=== PATIENT | female | born 1985 | race Caucasian/White ===

== ENCOUNTER 2018-11-26 17:16 | Emergency (ER) | payer BC, OTHER ==
[2018-11-26 17:36] VITALS: BP 146/92
--- NOTE | 2018-11-26 18:05 | EDM.PDOC ---
ED HPI GENERAL MEDICAL PROBLEM - General Chief Complaint: Cardiovascular Problem Stated Complaint: DIZZINESS/HEART PALPITATIONS Time Seen by Provider: 11/26/18 17:32 Source of Information: Reports: Patient History Limitations: Reports: No Limitations - History of Present Illness INITIAL COMMENTS - FREE TEXT/NARRATIVE: 33 yo F comes in for frequent episodes of heart palpitations that started about 4-5 months ago. She states they haven't gotten worse, but have continued for months and she has never had this before. She did not talk with her PCP regarding this issue- last saw Dr. Burgess "a couple weeks ago". She describes the episodes as lasting "a couple of seconds", happening every 30 minutes about 30-40 times per day, with random onset. Gets better with rest, worse with movement. She does not have associated chest pain. She does complain of some dizziness, SOB, nausea, "fluttering" in her chest, and feeling her "body goes limp". She denies PEDERSEN, visual changes, LOC, seizure history, vomiting, diarrhea or other symptoms. She has no cardiac history, thyroid history, but does have history of asthma- uses inhaler as needed. No no stress/anxiety in her life. PCP is Dr. Burgess. - Related Data Allergies Allergy/AdvReac Type Severity Reaction Status Date / Time hydroxychloroquine Allergy Hives Verified 11/26/18 17:25 Sulfa (Sulfonamide Allergy Hives Verified 11/26/18 17:25 Antibiotics) Home Meds: Home Meds Adalimumab [Humira] 20 mg SQ ASDIRECTED 11/26/18 [History] DULoxetine [Cymbalta] 30 mg PO BID 11/26/18 [History] Gabapentin [Neurontin] 300 mg PO DAILY 11/26/18 [History] Gabapentin [Neurontin] 900 mg PO BEDTIME 11/26/18 [History] Montelukast [Singulair] 10 mg PO DAILY 11/26/18 [History] Propranolol [Inderal] 10 mg PO DAILY 11/26/18 [History] Past Medical History HEENT History: Reports: Impaired Vision Other HEENT History: wears contacts. Respiratory History: Reports: Asthma Gastrointestinal History: Reports: Hiatal Hernia Genitourinary History: Reports: UTI, Recurrent FISHING HAND History: Reports: Musculoskeletal History: Reports: RA, Other (See Below) Other Musculoskeletal History: ??psoriatic arthritis. Neurological History: Reports: Migraines Psychiatric History: Reports: Anxiety, Depression Hematologic History: Reports: Anemia Dermatologic History: Reports: Psoriasis - Infectious Disease History Infectious Disease History: Reports: Chicken Pox - Past Surgical History HEENT Surgical History: Reports: Adenoidectomy, Tonsillectomy Respiratory Surgical History: Reports: None GI Surgical History: Reports: EGD, Hernia Repair/Other Female Surgical History: Reports: Dilitation & Evacuation Neurological Surgical History: Reports: None Musculoskeletal Surgical History: Reports: Carpal Tunnel Dermatological Surgical History: Reports: None Social & Family History - Family History Cardiac: Reports: Hypertension - Tobacco Use Smoking Status *Q: Never Smoker Second Hand Smoke Exposure: No - Caffeine Use Caffeine Use: Reports: Coffee - Recreational Drug Use Recreational Drug Use: No - Living Situation & Occupation Living situation: Reports: Occupation: Employed ED ROS GENERAL - Review of Systems Review Of Systems: ROS reveals no pertinent complaints other than HPI. ED EXAM, GENERAL - Physical Exam Exam: See Below Exam Limited By: No Limitations General Appearance: Alert, WD/WN, No Apparent Distress Eye Exam: Bilateral Eye: EOMI, Normal Inspection, PERRL Ears: Normal External Exam, Hearing Grossly Normal Throat/Mouth: Normal Inspection, Normal Lips, Normal Teeth, Normal Gums, Normal Oropharynx, Normal Voice, No Airway Compromise Head: Atraumatic, Normocephalic Neck: Normal Inspection, Supple, Non-Tender, Full Range of Motion Respiratory/Chest: No Respiratory Distress, Lungs Clear, Normal Breath Sounds, No Accessory Muscle Use, Chest Non-Tender Cardiovascular: Normal Peripheral Pulses, No Edema, No Gallop, No JVD, No Murmur , No Rub, Tachycardia GI/Abdominal: Normal Bowel Sounds, Soft, Non-Tender, No Organomegaly, No Distention, No Abnormal Bruit, No Mass Back Exam: Normal Inspection, Full Range of Motion, NT Neurological: Alert, Oriented, CN II-XII Intact, Normal Cognition, Normal Gait, Normal Reflexes, No Motor/Sensory Deficits Psychiatric: Normal Affect, Normal Mood Skin Exam: Warm, Dry, Intact, Normal Color, No Rash Course - Vital Signs Last Recorded V/S: Last Vital Signs Temp 98.5 F 11/26/18 17:20 Pulse 96 11/26/18 17:20 Resp 16 11/26/18 17:20 BP 146/92 H 11/26/18 17:20 Pulse Ox 99 11/26/18 17:20 - Orders/Labs/Meds Orders: Active Orders 24 hr Category Date Time Status EKG 12 Lead [EKG Documentation Completion] [RC] STAT Care 11/26/18 17:27 Active CXR [Chest 2V] [CR] Stat Exams 11/26/18 18:53 Taken Labs: Laboratory Tests 11/26/18 11/26/18 11/26/18 Range/Units 19:22 19:22 19:22 WBC 11.85 H (3.98-10.04) K/mm3 RBC 4.92 (3.98-5.22) M/mm3 Hgb 13.5 (11.2-15.7) gm/L Hct 41.7 (34.1-44.9) % MCV 84.8 (79.4-94.8) fl MCH 27.4 (25.6-32.2) pg MCHC 32.4 (32.2-35.5) g/dl RDW Std Deviation 43.8 (36.4-46.3) fL Plt Count 375 H (182-369) K/mm3 MPV 9.9 (9.4-12.3) fl Neut % (Auto) 40.6 (34.0-71.1) % Lymph % (Auto) 50.8 (19.3-51.7) % [place] % (Auto) 6.2 (4.7-12.5) % Eos % (Auto) 1.6 (0.7-5.8) Baso % (Auto) 0.6 (0.1-1.2) % Neut # (Auto) 4.82 (1.56-6.13) K/mm3 Lymph # (Auto) 6.02 H (1.18-3.74) K/mm3 [place] # (Auto) 0.73 H (0.24-0.36) K/mm3 Eos # (Auto) 0.19 (0.04-0.36) K/mm3 Baso # (Auto) 0.07 (0.01-0.08) K/mm3 Manual Slide Review Abnormal smear Sodium 140 (136-145) mEq/L Potassium 3.9 (3.5-5.1) mEq/L Chloride 103 (98-107) mEq/L Carbon Dioxide 27 (21-32) mEq/L Anion Gap 13.9 (5-15) BUN 15 (7-18) mg/dL Creatinine 0.9 (0.55-1.02) mg/dL Est Cr Clr Drug Dosing 72.17 mL/min Estimated GFR (MDRD) > 60 (>60) mL/min BUN/Creatinine Ratio 16.7 (14-18) Glucose 103 (74-106) mg/dL Calcium 10.0 (8.5-10.1) mg/dL Total Bilirubin 0.2 (0.2-1.0) mg/dL AST 18 (15-37) U/L ALT 33 (14-59) U/L Alkaline Phosphatase 86 (46-116) U/L Troponin I < 0.017 (0.00-0.056) ng/mL Total Protein 8.1 (6.4-8.2) g/dl Albumin 4.1 (3.4-5.0) g/dl Globulin 4.0 gm/dL Albumin/Globulin Ratio 1.0 (1-2) TSH 3rd Generation 1.931 (0.358-3.74) uIU/mL - Re-Assessments/Exams Free Text/Narrative Re-Assessment/Exam: 11/26/18 17:54 EKG shows 11/26/18 19:22 I have ordered CBC, CMP, Troponin, CXR 11/26/18 20:05 CBC shows WBC 11.8- this is likely d/t stress response and not illness as the patient has no sick symptoms CMP WNL Troponin <0.017 CXR reviewed by myself and Dr. Farris- nothing acute seen. TSH pending 11/26/18 21:05 TSH WNL at 1.931 At this time, she is stable enough to go home. She can follow up with her PCP for possible Holter Monitor if symptoms continue. Departure - Departure Time of Disposition: 21:06 Disposition: Home, Self-Care 01 Condition: Good Clinical Impression: Palpitations Instructions: Palpitations, [id number] Referrals: Rebecca Hubbard MD [Primary Care Provider] - Forms: ED Department Discharge Additional Instructions: You were seen in the ED today for heart palpitations that have been happening the past 4-5 months. At this time, your cardiac workup here was negative. Your labs showed no electrolyte abnormalities or thyroid issues that may cause palpitations. Chest Xray was normal. It is recommended you follow up with your primary care provider as you may need a Holter Monitor, which can track your heart for abnormalities for 1-2 days. Please return to ED if new or worsening symptoms. - My Orders Last 24 Hours: My Active Orders 11/26/18 17:27 EKG 12 Lead [EKG Documentation Completion] [RC] STAT 11/26/18 18:53 CXR [Chest 2V] [CR] Stat - Assessment/Plan Last 24 Hours: My Active Orders 11/26/18 17:27 EKG 12 Lead [EKG Documentation Completion] [RC] STAT 11/26/18 18:53 CXR [Chest 2V] [CR] Stat
--- NOTE | 2018-11-28 10:55 | CR ---
Chest: Two views of the chest were obtained. Comparison: No prior chest imaging. Heart size and mediastinum are normal. Lungs are clear. Bony structures show slight scoliosis within the spine. Impression: 1. Nothing acute is seen on two-view chest x-ray. Diagnostic code #2
== END 2018-11-26 21:26 | disposition home or self-care (01) ==
LOC: JD.ED 17:16
DX: R00.2 Palpitations (principal); J45.909 Unspecified asthma, uncomplicated; F41.9 Anxiety disorder, unspecified; F32.9 Major depressive disorder, single episode, unspecified; Z79.899 Other long term (current) drug therapy; Z88.2 Allergy status to sulfonamides; Z88.8 Allergy status to other drugs, medicaments and biological substances
CPT/HCPCS: 36415; 71046; 71046-26; 80053; 84443; 84484; 85025; 93005; 93010; 99284; 99285-25

== ENCOUNTER 2019-07-25 09:32 | Emergency (ER) | payer OTHER ==
[2019-07-25 09:47] VITALS: PULSE 67
--- NOTE | 2019-07-25 09:48 | EDM.PDOC ---
ED HPI GENERAL MEDICAL PROBLEM - General Chief Complaint: Lower Extremity Injury/Pain Stated Complaint: [facility] Time Seen by Provider: 07/25/19 09:42 Source of Information: Reports: Patient History Limitations: Reports: No Limitations - History of Present Illness INITIAL COMMENTS - FREE TEXT/NARRATIVE: Patient is a 34-year-old female who presents with complaints of left ankle pain and swelling after falling down "1-2 stairs". She is unsure of the mechanism of the fall. States that she just felt a pop in shooting pain. She verbalized the majority of her pain is to the medial aspect of her ankle. EMS reports that there was deformity to the joint upon arrival and they did straighten it and apply a splint. Patient initially has significant numbness to the extremity , however after the splint was applied she did regain feeling back in the foot. She does state that it still feels a little numb but she can feel touch. Patient received 50 mcg of intranasal fentanyl enroute and states that her pain is well managed at this time. Left Ankle Pain Score (Numeric/FACES): 6 - Related Data Allergies Allergy/AdvReac Type Severity Reaction Status Date / Time hydroxychloroquine Allergy Hives Verified 07/25/19 09:47 Sulfa (Sulfonamide Allergy Hives Verified 07/25/19 09:47 Antibiotics) Home Meds: Home Meds Adalimumab [Humira] 20 mg SQ ASDIRECTED 11/26/18 [History] DULoxetine [Cymbalta] 30 mg PO BID 11/26/18 [History] Gabapentin [Neurontin] 300 mg PO QAM 11/26/18 [History] Gabapentin [Neurontin] 600 mg PO BEDTIME 11/26/18 [History] Montelukast [Singulair] 10 mg PO DAILY 11/26/18 [History] Propranolol [Inderal] 10 mg PO DAILY 11/26/18 [History] oxyCODONE HCl/Acetaminophen [Percocet 5-325 mg Tablet] 1 - 2 each PO Q4H PRN # 30 tablet 07/25/19 [Rx] Past Medical History HEENT History: Reports: Impaired Vision Other HEENT History: wears contacts. 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 Neurological History: Reports: Migraines Psychiatric History: Reports: Anxiety, Depression Hematologic History: Reports: Anemia Dermatologic History: Reports: Psoriasis - Infectious Disease History Infectious Disease History: Reports: Chicken Pox - Past Surgical History HEENT Surgical History: Reports: Adenoidectomy, Tonsillectomy Respiratory Surgical History: Reports: None GI Surgical History: Reports: EGD, Hernia Repair/Other Female Surgical History: Reports: Dilitation & Evacuation Neurological Surgical History: Reports: None Musculoskeletal Surgical History: Reports: Carpal Tunnel Dermatological Surgical History: Reports: None Social & Family History - Family History Cardiac: Reports: Hypertension - Caffeine Use Caffeine Use: Reports: Coffee - Living Situation & Occupation Living situation: Reports: Occupation: Employed Review of Systems - Review of Systems Review Of Systems: See Below Constitutional: Reports: No Symptoms Eyes: Reports: No Symptoms Ears: Reports: No Symptoms Nose: Reports: No Symptoms Mouth/Throat: Reports: No Symptoms Respiratory: Reports: No Symptoms Cardiovascular: Reports: No Symptoms GI/Abdominal: Reports: No Symptoms Genitourinary: Reports: No Symptoms Musculoskeletal: Reports: Joint Pain (left ankle) Skin: Reports: No Symptoms Neurological: Reports: No Symptoms Psychiatric: Reports: No Symptoms ED EXAM, GENERAL - Physical Exam Exam: See Below Exam Limited By: No Limitations General Appearance: Alert, WD/WN, No Apparent Distress Respiratory/Chest: No Respiratory Distress, Lungs Clear, Normal Breath Sounds, No Accessory Muscle Use, Chest Non-Tender Cardiovascular: Normal Peripheral Pulses, Regular Rate, Rhythm, No Murmur Extremities: Other (left ankle swelling. Medial aspect greater than lateral. Slight medial deformity noted. pt verbalizes some numbness to the extremity but is able to move her toes and feel touch. Toes are pink and warm. ) Neurological: Alert, Oriented, Normal Cognition Psychiatric: Normal Affect, Normal Mood Skin Exam: Warm, Dry, Intact, Normal Color, No Rash Course - Vital Signs Last Recorded V/S: Last Vital Signs Temp 98.1 F 07/25/19 09:41 Pulse 67 07/25/19 09:41 Resp 14 07/25/19 09:41 BP 125/84 07/25/19 09:41 Pulse Ox 100 07/25/19 09:41 - Orders/Labs/Meds Orders: Active Orders 24 hr Category Date Time Status Peripheral IV Care [RC] . DIRECTED Care 07/25/19 09:55 Active Ankle Min 3V Lt [CR] Stat Exams 07/25/19 09:42 Taken Foot Comp Min 3V Lt [CR] Stat Exams 07/25/19 09:42 Taken Sodium Chloride 0.9% [Saline Flush] Med 07/25/19 09:55 Active 10 ml FLUSH ASDIRECTED PRN DME for Discharge [COMM] Routine Oth 07/25/19 10:19 Ordered DME for Discharge [COMM] Stat Oth 07/25/19 10:28 Ordered Peripheral IV Insertion Adult [OM.PC] Stat Oth 07/25/19 09:55 Ordered Medication Orders Sodium Chloride (Saline Flush) 10 ml FLUSH ASDIRECTED PRN PRN Reason: Keep Vein Open Last Admin: 07/25/19 10:25 Dose: 10 ml Meds: Medications Generic Name Dose Route Start Last Admin Trade Name Freq PRN Reason Stop Dose Admin Sodium Chloride 10 ml 07/25/19 09:55 07/25/19 10:25 Saline Flush FLUSH 10 ml ASDIRECTED PRN Administration Keep Vein Open Discontinued Medications Generic Name Dose Route Start Last Admin Trade Name Freq PRN Reason Stop Dose Admin Hydromorphone HCl 0.5 mg 07/25/19 10:19 07/25/19 10:25 Dilaudid IVPUSH 07/25/19 10:20 0.5 mg ONETIME ONE Administration Hydromorphone HCl Confirm 07/25/19 10:20 07/25/19 10:26 Dilaudid Administered 07/25/19 10:21 Not Given Dose 0.5 mg .ROUTE .STK-MED ONE Oxycodone/Acetaminophen 1 tab 07/25/19 10:54 07/25/19 11:01 Percocet 325-5 Mg PO 07/25/19 10:55 1 tab ONETIME ONE Administration - Re-Assessments/Exams Free Text/Narrative Re-Assessment/Exam: Patient is a 34-year-old female who presents with complaints of left ankle pain and swelling after falling down one to 2 steps. She is unsure if she fell on the extremity or if it twisted. She states that she felt a pop and then in extreme pain. She has no previous injury to that extremity, however she does have RA and she states that that ankle has been bothering her recently. She did receive 50 mics of intranasal fentanyl and round and states that her pain is well managed this time. I will have the nurses establish IV access in case additional pain meds are needed. I have ordered x-rays of the ankle and foot. 07/25/19 10:22 X-ray shows a spiral fracture of the lateral malleolus with a slight lateral shift of the ankle joint itself. Consulted with ER physician Dr. Farris. We will administer Dilaudid 0.[address] then [address] the ankle in a walking boot. This will likely require surgical repair, so the pt will be referred to orthopedic surgery. Patient will be discharged with crutches and orders for nonweightbearing and to follow up with Dr. Mejia next week. I will prescribe her Percocets for pain. Discharge instructions as noted. Departure - Departure Time of Disposition: 10:56 Disposition: Home, Self-Care 01 Condition: Fair Clinical Impression: Fractured lateral malleolus Qualifiers: Encounter type: initial encounter Fracture type: closed Fracture alignment: displaced Laterality: left Qualified Code(s): S82.62XA - Displaced fracture of lateral malleolus of left fibula, initial encounter for closed fracture - Discharge Information *PRESCRIPTION DRUG MONITORING PROGRAM REVIEWED*: No *COPY OF PRESCRIPTION DRUG MONITORING REPORT IN PATIENT MOHIT: No Prescriptions: oxyCODONE HCl/Acetaminophen [Percocet 5-325 mg Tablet] 1 - 2 each PO Q4H PRN # 30 tablet PRN Reason: Pain Instructions: Ankle Fracture Referrals: Edwar Mejia MD [Physician] - Forms: ED Department Discharge, ED Return to Work/School Form Additional Instructions: You were seen in the emergency Department today after falling and injuring her left ankle. You do have a fracture of the left lateral malleolus. You have been placed in a walking boot. You should be nonweightbearing and use crutches for mobility. You may open boot to apply ice to the area; however, reapply the boot prior to being mobile. We recommend that you ice for 20 minutes at a time every couple hours. Be sure not to apply ice directly to the skin. We also recommend that you elevate the extremity as much as possible. You have been prescribed Percocet for pain. You may take 1-2 tabs every 4 hours as needed. You may also use [id number] Tylenol but please be aware that there is 325 mg of Tylenol in each Percocet tablet. Ensure that you are not receiving more than 4000 mg of Tylenol total in a 24-hour period. This medication is sedating so you should not drive for 12 hours after taking a Percocet. It may also cause constipation so we recommend that she take a stool softener. Call Saturday morning to schedule appointment with the orthopedic surgeon Dr. Mejia. If you should experience any new or worsening symptoms, please don't hesitate to return to the emergency department. Sepsis Event Note - Focused Exam Vital Signs: Vital Signs Temp Pulse Resp BP Pulse Ox 07/25/19 09:41 98.1 F 67 14 125/84 100 Date Exam was Performed: 07/25/19 Time Exam was Performed: 11:20 - My Orders Last 24 Hours: My Active Orders 07/25/19 09:42 Ankle Min 3V Lt [CR] Stat Foot Comp Min 3V Lt [CR] Stat 07/25/19 09:55 Peripheral IV Care [RC] . DIRECTED Sodium Chloride 0.9% [Saline Flush] 10 ml FLUSH ASDIRECTED PRN Peripheral IV Insertion Adult [OM.PC] Stat 07/25/19 10:19 DME for Discharge [COMM] Routine 07/25/19 10:28 DME for Discharge [COMM] Stat - Assessment/Plan Last 24 Hours: My Active Orders 07/25/19 09:42 Ankle Min 3V Lt [CR] Stat Foot Comp Min 3V Lt [CR] Stat 07/25/19 09:55 Peripheral IV Care [RC] . DIRECTED Sodium Chloride 0.9% [Saline Flush] 10 ml FLUSH ASDIRECTED PRN Peripheral IV Insertion Adult [OM.PC] Stat 07/25/19 10:19 DME for Discharge [COMM] Routine 07/25/19 10:28 DME for Discharge [COMM] Stat
[2019-07-25] MEDS ORDERED: Sodium Chloride 0.9% 10 ML Syringe FLUSH PRN (09:55)
[2019-07-25] MEDS ORDERED: HYDROmorphone 0.5 MG/0.5 ML Syringe IVPUSH ONE (10:19)
[2019-07-25] MEDS ORDERED: HYDROmorphone 0.5 MG/0.5 ML Syringe ONE (10:20)
[2019-07-25] MEDS ORDERED: Acetaminophen/oxyCODONE 325-5 MG Tab PO ONE (10:54)
[2019-07-25 13:05] VITALS: BP 120/65
--- NOTE | 2019-07-27 10:42 | CR ---
Left ankle: Four views of the left ankle were obtained. Comparison: No previous ankle exam is available. Lateral malleolar fracture is seen. Ankle mortise is asymmetric with tibia being displaced in a medial direction. Slightly displaced posterior malleolar fracture is noted. Soft tissue swelling is noted. Medial malleolus appears to be intact. Impression: 1. Displaced lateral malleolus fracture and posterior malleolus fracture. 2. Unstable ankle mortise with shifting of the tibia in the medial direction. Diagnostic code #3 This report was dictated in [place] Standard Time
--- NOTE | 2019-07-27 10:43 | CR ---
Left foot: Three views of the left foot were obtained. Comparison: No prior foot exam. Ankle findings are partially visualized as described on ankle exam. No acute fracture or other abnormality is appreciated within the left foot. Impression: 1. Ankle findings as described on ankle exam. 2. Nothing acute is seen within the left foot. Diagnostic code #2 This report was dictated in [place] Standard Time
== END 2019-07-25 11:40 | disposition home or self-care (01) ==
LOC: JD.ED 09:32
DX: S82.62XA Displaced fracture of lateral malleolus of left fibula, initial encounter for closed fracture (principal); J45.909 Unspecified asthma, uncomplicated; F32.9 Major depressive disorder, single episode, unspecified; Z88.8 Allergy status to other drugs, medicaments and biological substances; Z88.2 Allergy status to sulfonamides; Z79.899 Other long term (current) drug therapy; W10.9XXA Fall (on) (from) unspecified stairs and steps, initial encounter
CPT/HCPCS: 73610; 73630; 96374; 99284; A9270; J1170

== ENCOUNTER 2019-07-29 07:29 | Day surgery (SDC) | payer OTHER ==
[~2019-07-29 07:29] MED LIST: Acetaminophen 1,000 MG in Premix Bag 1 BAG IV SCH; Dexamethasone 4 MG/ML 5 ML MDV ONE; Lactated Ringers 1,000 ML ONE; Lidocaine 1% 4 ML ONE; Lidocaine 1%/Sod Bicarbonate in NS 8.4% 1 ML Syringe IDERM PRN; Midazolam 1 MG/ML 2 ML SDV ONE; Ondansetron 4 MG/2 ML SDV ONE; Propofol 200 MG/20 ML SDV ONE; Sodium Chloride 0.9% 10 ML Syringe FLUSH PRN; ceFAZolin 1 GM Vial ONE
[2019-07-29] MEDS: Lactated Ringers 1,000 ML IV SCH ×2 (07:58→11:55)
--- NOTE | 2019-07-29 08:02 | PCM.PREANE ---
Preanesthetic Assessment - Anesthesia/Transfusion/Family Hx Anesthesia History: Prior Anesthesia Without Reaction Family History of Anesthesia Reaction: No Transfusion History: No Prior Transfusion(s) - Review of Systems General: No Symptoms, Other (chronic pain patient, on naltrexone last dose 07/25) Pulmonary: Other (asthma, last used inhaler this past summer) Cardiovascular: No Symptoms, Other (HTN) Gastrointestinal: Other (hiatal hernia) Neurological: No Symptoms, Headache (migraines on propanolol for this) Other: Reports: Depression, Anxiety - Physical Assessment NPO Status Date: 07/28/19 NPO Status Time: 21:00 Mental Status: Alert & Oriented x3 Airway Class: Mallampati = 2 Dentition: Reports: Normal Dentition Thyro-Mental Finger Breadths: 3 Mouth Opening Finger Breadths: 3 ROM/Head Extension: Full Lungs: Clear to Auscultation, Normal Respiratory Effort Cardiovascular: Regular Rate, Regular Rhythm - Lab Values: Laboratory Last Values MRSA (PCR) Negative 07/27/19 13:15 - Allergies Allergies/Adverse Reactions: Allergies Allergy/AdvReac Type Severity Reaction Status Date / Time hydroxychloroquine Allergy Hives Verified 07/28/19 16:17 Sulfa (Sulfonamide Allergy Hives Verified 07/28/19 16:17 Antibiotics) - Blood Blood Available: No Product(s) Available: None - Anesthesia Plan Pre-Op Medication Ordered: None Beta Dolly: Propranolol Med Last Dose Date: 07/29/19 Med Last Dose Time: 04:30 - Acknowledgements Anesthesia Type Planned: Spinal, MAC Pt an Appropriate Candidate for the Planned Anesthesia: Yes Alternatives and Risks of Anesthesia Discussed w Pt/Guardian: Yes Pt/Guardian Understands and Agrees with Anesthesia Plan: Yes PreAnesthesia Questionnaire HEENT History: Reports: Impaired Vision Other HEENT History: wears contacts/glasses Cardiovascular History: Reports: Hypertension Respiratory History: Reports: Asthma Gastrointestinal History: Reports: Hiatal Hernia Genitourinary History: Reports: UTI, Recurrent 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: Musculoskeletal History: Reports: RA, Other (See Below) Other Musculoskeletal History: psoriatic arthritis Neurological History: Reports: Migraines Psychiatric History: Reports: Anxiety, Depression Endocrine/Metabolic History: Reports: None Hematologic History: Reports: Anemia Immunologic History: Reports: None Oncologic (Cancer) History: Reports: None Dermatologic History: Reports: Psoriasis - Infectious Disease History Infectious Disease History: Reports: Chicken Pox - Past Surgical History Head Surgeries/Procedures: Reports: None HEENT Surgical History: Reports: Adenoidectomy, Tonsillectomy Cardiovascular Surgical History: Reports: None Respiratory Surgical History: Reports: None GI Surgical History: Reports: EGD, Hernia Repair/Other, Sourav Fundoplication Female Surgical History: Reports: D&C, Dilitation & Evacuation Male Surgical History: Reports: None Endocrine Surgical History: Reports: None Neurological Surgical History: Reports: None Musculoskeletal Surgical History: Reports: Carpal Tunnel Oncologic Surgical History: Reports: None Dermatological Surgical History: Reports: None - SUBSTANCE USE Smoking Status *Q: Former Smoker Recreational Drug Use History: No - HOME MEDS Home Medications: Home Meds DULoxetine [Cymbalta] 30 mg PO BID 11/26/18 [History] Gabapentin [Neurontin] 300 mg PO QAM 11/26/18 [History] Gabapentin [Neurontin] 600 mg PO BEDTIME 11/26/18 [History] Montelukast [Singulair] 10 mg PO DAILY 11/26/18 [History] Propranolol [Inderal] 10 mg PO DAILY 11/26/18 [History] oxyCODONE HCl/Acetaminophen [Percocet 5-325 mg Tablet] 1 - 2 each PO Q4H PRN # 30 tablet 07/25/19 [Rx] Adalimumab [Humira(Cf) Pen] 40 mg SQ Q14D 07/28/19 [History] Meloxicam 7.5 mg PO DAILY 07/28/19 [History] Metaxalone 800 mg PO DAILY PRN 07/28/19 [History] Naltrexone 4.5 4.5 mg PO DAILY 07/28/19 [History] Acetaminophen/oxyCODONE [Percocet 325-5 MG] 1 - 2 each PO Q6H PRN #40 tab [Rx] Aspirin 325 mg PO BID #84 tab 07/29/19 [Rx] Cyclobenzaprine [Flexeril] 10 mg PO TID PRN #30 tab 07/29/19 [Rx] - CURRENT (IN HOUSE) MEDS Current Meds: Current Medications Lactated Ringer's (Ringers, Lactated) 1,000 mls @ 125 mls/hr IV ASDIRECTED MUMTAZ Acetaminophen 1,000 mg/ Premix 100 mls @ 400 mls/hr IV ONETIME MUMTAZ Stop: 07/30/19 00:02 Lidocaine/Sodium Bicarbonate (Buffered Lidocaine 1% In Ns 8.4%) 0.25 ml IDERM ONETIME PRN PRN Reason: Prior to IV Start Sodium Chloride (Saline Flush) 10 ml FLUSH ASDIRECTED PRN PRN Reason: Keep Vein Open Discontinued Medications Cefazolin Sodium (Ancef) Confirm Administered Dose 2 gm .ROUTE .STK-MED ONE Stop: 07/29/19 07:01 Dexamethasone (Dexamethasone) Confirm Administered Dose 20 mg .ROUTE .STK-MED ONE Stop: 07/29/19 07:01 Lactated Ringer's (Ringers, Lactated) Confirm Administered Dose 1,000 mls @ as directed .ROUTE .STK-MED ONE Stop: 07/29/19 07:01 Lidocaine HCl (Xylocaine-Mpf 1%) Confirm Administered Dose 4 mls @ as directed .ROUTE .STK-MED ONE Stop: 07/29/19 07:04 Midazolam HCl (Versed 1 Mg/Ml) Confirm Administered Dose 2 mg .ROUTE .STK-MED ONE Stop: 07/29/19 07:01 Ondansetron HCl (Zofran) Confirm Administered Dose 4 mg .ROUTE .STK-MED ONE Stop: 07/29/19 07:01 Propofol (Diprivan 20 Ml) Confirm Administered Dose 200 mg .ROUTE .STK-MED ONE Stop: 07/29/19 07:01
[2019-07-29] MEDS ORDERED: Propofol 200 MG/20 ML SDV ONE (08:14)
[2019-07-29] MEDS ORDERED: fentaNYL 100 MCG/2 ML SDV ONE (08:15)
[2019-07-29] MEDS ORDERED: Morphine PF 10 MG/10 ML SDV ONE (08:16)
[2019-07-29] MEDS ORDERED: Phenylephrine/Normal Saline 100 MCG/ML 10 ML Syringe ONE (09:43)
[2019-07-29] MEDS: Bupivacaine 0.25% 10 ML SDV ONE ×2 (10:14→10:45)
[2019-07-29] MEDS ORDERED: Ketorolac 30 MG/ML SDV ONE (10:36)
--- NOTE | 2019-07-29 11:12 | PCM.POSTAN ---
POST ANESTHESIA ASSESSMENT - MENTAL STATUS Mental Status: Alert, Oriented - VITAL SIGNS Vital Signs: Last Vital Signs Temp 36.4 C 07/29/19 07:40 Pulse 83 07/29/19 07:40 Resp 16 07/29/19 07:40 BP 102/53 L 07/29/19 07:40 Pulse Ox 98 07/29/19 07:40 - RESPIRATORY Respiratory Status: Respiratory Rate WNL, Airway Patent, O2 Saturation Stable, Supplemental Oxygen - CARDIOVASCULAR CV Status: Pulse Rate WNL, Blood Pressure Stable - GASTROINTESTINAL GI Status: No Symptoms - PAIN Pain Score: 0 - POST OP HYDRATION Hydration Status: Adequate & Stable
[2019-07-29] MEDS ORDERED: diphenhydrAMINE 50 MG/ML SDV IVPUSH PRN (11:13)
[2019-07-29] MEDS ORDERED: HYDROmorphone 0.5 MG/0.5 ML Syringe IVPUSH PRN (11:13)
[2019-07-29] MEDS ORDERED: Ondansetron 4 MG/2 ML SDV IVPUSH PRN (11:13)
[2019-07-29] MEDS ORDERED: fentaNYL 100 MCG/2 ML SDV IVPUSH PRN (11:13)
[2019-07-29] MEDS ORDERED: Cyclobenzaprine 10 MG Tab PO PRN (11:33)
[2019-07-29] MEDS ORDERED: Acetaminophen/oxyCODONE 325-5 MG Tab PO PRN (11:33)
--- NOTE | 2019-07-29 12:06 | CR ---
Left ankle: 11 fluoroscopic spot views were obtained of the left ankle. Study shows reduction and fixation of fibular fracture with plate and screws. Ankle mortise has been restored to normal. Fluoroscopy time is given as 26.5 seconds. Impression: 1. Procedural study as noted above. Diagnostic code #2 This report was dictated in [place] Standard Time
--- NOTE | 2019-07-29 12:46 | PCM48HPAN ---
Post Anesthesia Note - EVALUATION WITHIN 48HRS OF ANESTHETIC Vital Signs in Normal Range: Yes Patient Participated in Evaluation: Yes Respiratory Function Stable: Yes Airway Patent: Yes Cardiovascular Function Stable: Yes Hydration Status Stable: Yes Pain Control Satisfactory: Yes Nausea and Vomiting Control Satisfactory: Yes Mental Status Recovered: Yes Vital Signs: Last Vital Signs Temp 36.6 C 07/29/19 12:15 Pulse 83 07/29/19 07:40 Resp 10 L 07/29/19 12:15 BP 134/81 07/29/19 12:15 Pulse Ox 95 07/29/19 12:15
[2019-07-29 16:41] VITALS: BP 124/53; PULSE 76
--- NOTE | 2019-07-30 16:27 | PCM.OPNOTE ---
- General Post-Op/Procedure Note Date of Surgery/Procedure: 07/29/19 Operative Procedure(s): open reduction internal fixation of left lateral malleolus and syndesmosis Pre Op Diagnosis: left bimalleolar equilavent ankle fracture with syndesmosis disruption Post-Op Diagnosis: Same Anesthesia Technique: Local, Spinal Primary Surgeon: Edwar Mejia Anesthesia Provider: Radha Waite [employer] Observer Helper: Kendra Yoder EBL in mLs: 10 Complications: None Condition: Good
--- NOTE | 2019-07-30 17:08 | OR ---
DATE OF OPERATION: 07/29/2019 SURGEON: Edwar Mejia MD OPERATION PERFORMED: Open reduction and internal fixation of left lateral malleolus fracture and syndesmosis. PREOPERATIVE DIAGNOSIS: Left bimalleolar equivalent ankle fracture with syndesmotic disruption. POSTOPERATIVE DIAGNOSIS: Left bimalleolar equivalent ankle fracture with syndesmotic disruption. ANESTHESIA: Local with spinal. ANESTHESIA PROVIDER: Radha Waite. AWNING FINISHER: Kendra Yoder PA-C. ESTIMATED BLOOD LOSS: 10 mL. COMPLICATIONS: None. CONDITION: Stable. DESCRIPTION OF PROCEDURE: The patient was identified in the preoperative holding area. Proper site was marked and identified by surgeon. The patient was taken back to the operating theater. After adequate anesthesia, the patient's left lower extremity had a nonsterile tourniquet applied and it was sterilely prepped and draped in the usual sterile fashion. OR time-out was performed. The patient received 2 g IV Ancef. Left lower extremity was then exsanguinated. Tourniquet was insufflated to 250 mmHg. Standard lateral incision was made over the fibula. This was taken down to the fracture site. Fracture site was identified. It was curetted and rongeured of all fracture hematoma. At this time, a [id number] reduction clamp was then utilized. I had anatomic alignment of the fracture with reduction of the fibula with restorationist of fibular length. At this time, it was decided we do a lag screw. A 3.5 drill bit was used on the near cortex, a 2.5 was used on the far cortex and an 18 mm lag screw was applied and was found to have adequate compression and stability of the fracture site. At this time, a [place] 4-hole lateral distal fibular locking plate was then placed under C-arm fluoroscopy. This was found to be in adequate position. I did secure to the plate proximally first with a nonlocking screw and then I placed 4 locking screws distally and was found to have adequate apposition of the plate to the bone with no significant lift-off. I then placed 3 more cortical screws proximally and left a screw hole open for the syndesmotic fixation. A small incision was made medially and a large [id number] reduction clamp was then placed across the syndesmosis and at fibula and at tibia. The syndesmosis was then reduced under C-arm fluoroscopy and a tricortical syndesmotic screw was placed under C-arm fluoroscopy and found to have adequate restorationist of the syndesmosis as well as the ankle mortise with no widening on stress view. AP mortise and lateral views show anatomic reduction. Adequate saline was irrigated through the wound. 2-0 Vicryl was used subcutaneously, and shree were used for the skin. The patient was placed in a sterile soft dressing and a posterior slab splint and sent to the PACU in stable condition. MMODAL /[id number]
== END 2019-07-29 15:30 | disposition home or self-care (01) ==
LOC: JD.SDS 07:29
PROVIDERS: ATTEND Orthopaedic Surgery
DX: S82.62XA Displaced fracture of lateral malleolus of left fibula, initial encounter for closed fracture (principal); S93.432A Sprain of tibiofibular ligament of left ankle, initial encounter; I10 Essential (primary) hypertension; J45.909 Unspecified asthma, uncomplicated; F32.9 Major depressive disorder, single episode, unspecified; F41.9 Anxiety disorder, unspecified; G43.909 Migraine, unspecified, not intractable, without status migrainosus; M06.9 Rheumatoid arthritis, unspecified; W00.1XXA Fall from stairs and steps due to ice and snow, initial encounter; Z88.2 Allergy status to sulfonamides; Z88.8 Allergy status to other drugs, medicaments and biological substances; Z87.891 Personal history of nicotine dependence; Z79.899 Other long term (current) drug therapy
CPT/HCPCS: 27792; 27829; 76000; 81025; 87641; A9270; C1713; C1776; J0131; J0690; J1100; J1170; J1885; J2001; J2250; J2370; J2405; J2704; J3010; J3490; J7120; 01480; J2270

== ENCOUNTER → 2020-06-20 | Day surgery (SDC) | payer OTHER ==
[~2020-06-20] MED LIST changes: -Acetaminophen 1,000 MG in Premix Bag 1 BAG IV SCH; +Acetaminophen/HYDROcodone 325-5 MG Tab PO ONE; +Albuterol 6.7 GM Inhaler INH ONE; +Bupivacaine 0.5%/EPINEPHrine 1:200,000 50 ML MDV ONE; +HYDROmorphone 0.5 MG/0.5 ML Syringe IVPUSH PRN; +Ketamine 500 mg/10 ML MDV ONE; +Ketorolac 30 MG/ML SDV ONE; +Lactated Ringers 1,000 ML IV SCH; +Lidocaine 1% with EPINEPHrine 1:100,000 20 ML MDV ONE; -Lidocaine 1%/Sod Bicarbonate in NS 8.4% 1 ML Syringe IDERM PRN; +Ondansetron 4 MG/2 ML SDV IVPUSH ONE; +Ondansetron 4 MG/2 ML SDV IVPUSH PRN; +Rocuronium 50 MG/5 ML Vial ONE; -Sodium Chloride 0.9% 10 ML Syringe FLUSH PRN; +Succinylcholine/Sod PF 100 MG/5 ML SYRINGE IV ONE; -ceFAZolin 1 GM Vial ONE; +fentaNYL 250 MCG/5 ML SDV ONE
[2020-06-20] MEDS: Sodium Chloride 0.9% 10 ML Syringe FLUSH PRN ×2 (13:07→15:35)
--- NOTE | 2020-06-20 13:08 | EDM.PDOC ---
ED HPI GENERAL MEDICAL PROBLEM - General Chief Complaint: Abdominal Pain Stated Complaint: ABDOMINAL PAIN Time Seen by Provider: 06/20/20 12:20 Source of Information: Reports: Patient, RN Notes Reviewed - History of Present Illness INITIAL COMMENTS - FREE TEXT/NARRATIVE: 35 yr old female sent from clinic for eval. of RUQ and upper abd pain that started about 3 hrs ago. [place] fine earlier this AM. The pain did make her very nauseated and also has radiated to her back. She has had numerous similar attacks over the past 6 wks. Had a hot dog last evening, toast this morning about 6 1/2 hrs ago. She also has had some diarrhea with this. GB disease does run in her family. Right Abdomen Pain Score (Numeric/FACES): 5 - Related Data Allergies Allergy/AdvReac Type Severity Reaction Status Date / Time amitriptyline Allergy Hives Verified 06/20/20 13:58 hydroxychloroquine Allergy Hives Verified 06/20/20 13:58 Sulfa (Sulfonamide Allergy Hives Verified 06/20/20 13:58 Antibiotics) Home Meds: Home Meds DULoxetine [Cymbalta] 30 mg PO BID 11/26/18 [History] Gabapentin [Neurontin] 300 mg PO QAM 11/26/18 [History] Gabapentin [Neurontin] 600 mg PO BEDTIME 11/26/18 [History] Montelukast [Singulair] 10 mg PO DAILY 11/26/18 [History] Adalimumab [Humira(Cf) Pen] 40 mg SQ Q14D 07/28/19 [History] Meloxicam 7.5 mg PO DAILY 07/28/19 [History] Naltrexone 4.5 4.5 mg PO DAILY 07/28/19 [History] Diclofenac Submicronized [Diclofenac] 06/20/20 [History] Fluticasone/Salmeterol [Advair 100-50] 06/20/20 [History] Montelukast [Singulair] 10 mg PO DAILY 06/20/20 [History] buPROPion [Wellbutrin] 75 mg PO BEDTIME 06/20/20 [History] Past Medical History HEENT History: Reports: Impaired Vision Other HEENT History: wears contacts/glasses Cardiovascular History: Reports: Hypertension Respiratory History: Reports: Asthma Gastrointestinal History: Reports: Hiatal Hernia Genitourinary History: Reports: UTI, Recurrent 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: Musculoskeletal History: Reports: RA, Other (See Below) Other Musculoskeletal History: psoriatic arthritis Neurological History: Reports: Migraines Psychiatric History: Reports: Anxiety, Depression Endocrine/Metabolic History: Reports: None Hematologic History: Reports: Anemia Immunologic History: Reports: None Oncologic (Cancer) History: Reports: None Dermatologic History: Reports: Psoriasis - Infectious Disease History Infectious Disease History: Reports: Chicken Pox - Past Surgical History Head Surgeries/Procedures: Reports: None HEENT Surgical History: Reports: Adenoidectomy, Tonsillectomy Cardiovascular Surgical History: Reports: None Respiratory Surgical History: Reports: None GI Surgical History: Reports: EGD, Hernia Repair/Other, Sourav Fundoplication Female Surgical History: Reports: D&C, Dilitation & Evacuation Endocrine Surgical History: Reports: None Neurological Surgical History: Reports: None Musculoskeletal Surgical History: Reports: Carpal Tunnel Oncologic Surgical History: Reports: None Dermatological Surgical History: Reports: None Social & Family History - Family History Cardiac: Reports: Hypertension - Tobacco Use Tobacco Use Status *Q: Never Tobacco User - Caffeine Use Caffeine Use: Reports: Coffee - Living Situation & Occupation Living situation: Reports: Occupation: Employed ED ROS GENERAL - Review of Systems Review Of Systems: See Below Constitutional: Denies: Fever, Chills, Diaphoresis HEENT: Reports: No Symptoms Respiratory: Reports: No Symptoms Cardiovascular: Reports: No Symptoms GI/Abdominal: Reports: Abdominal Pain, Nausea. Denies: Vomiting Musculoskeletal: Reports: Back Pain Skin: Reports: No Symptoms Neurological: Reports: No Symptoms ED EXAM, GI/ABD - Physical Exam Exam: See Below General Appearance: Alert, Mild Distress Head: Atraumatic Neck: Supple Respiratory/Chest: No Respiratory Distress, Lungs Clear, Normal Breath Sounds Cardiovascular: Regular Rate, Rhythm GI/Abdominal Exam: Soft, Tender (RUQ and uppr mid abd, lower abd nontender). No: Guarding, Rebound Extremities: Normal Inspection Neurological: Alert, Oriented, No Motor/Sensory Deficits Skin Exam: Warm, Dry, Normal Color Course - Vital Signs Last Recorded V/S: Last Vital Signs Temp 97.3 F 06/20/20 18:15 Pulse 98 06/20/20 18:15 Resp 12 06/20/20 18:15 BP 110/50 L 06/20/20 18:15 Pulse Ox 99 06/20/20 18:15 - Orders/Labs/Meds Orders: Active Orders 24 hr Category Date Time Status Patient Status [ADT] Routine ADT 06/20/20 15:29 Active Communication Order [RC] ASDIRECTED Care 06/20/20 17:06 Active Cooling Warming Measures [RC] ASDIRECTED Care 06/20/20 17:06 Active Oxygen Therapy [RC] ASDIRECTED Care 06/20/20 17:06 Active Peripheral IV Care [RC] . DIRECTED Care 06/20/20 12:32 Active Pulse Oximetry [RC] ASDIRECTED Care 06/20/20 17:06 Active Vital Signs [RC] Q15M Care 06/20/20 17:06 Active HYDROmorphone [Dilaudid] Med 06/20/20 17:06 Active 0.5 mg IVPUSH Q10M PRN Lactated Ringers [Ringers, Lactated] 1,000 ml Med 06/20/20 15:30 Active IV ASDIRECTED Ondansetron [Zofran] Med 06/20/20 17:06 Active 4 mg IVPUSH ONETIME PRN Sodium Chloride 0.9% [Saline Flush] Med 06/20/20 12:31 Active 10 ml FLUSH ASDIRECTED PRN fentaNYL [Sublimaze] Med 06/20/20 17:06 Active 50 mcg IVPUSH Q5M PRN Peripheral IV Insertion Adult [OM.PC] Stat Oth 06/20/20 12:31 Ordered Schedule Procedure [COMM] Stat Oth 06/20/20 15:28 Ordered Medication Orders Fentanyl (Sublimaze) 50 mcg IVPUSH Q5M PRN PRN Reason: Pain Stop: 06/20/20 23:00 Last Admin: 06/20/20 18:12 Dose: 50 mcg Documented by: CARLY Hydromorphone HCl (Dilaudid) 0.5 mg IVPUSH Q10M PRN PRN Reason: Pain (severe 7-10) Stop: 06/20/20 23:00 Lactated Ringer's (Ringers, Lactated) 1,000 mls @ 125 mls/hr IV ASDIRECTED MUMTAZ Stop: 06/20/20 23:00 Last Admin: 06/20/20 15:35 Dose: 125 mls/hr Documented by: FLETCHER Ondansetron HCl (Zofran) 4 mg IVPUSH ONETIME PRN PRN Reason: Nausea/Vomiting Stop: 06/20/20 23:00 Last Admin: 06/20/20 18:26 Dose: 4 mg Documented by: CARLY Sodium Chloride (Saline Flush) 10 ml FLUSH ASDIRECTED PRN PRN Reason: Keep Vein Open Stop: 06/20/20 23:00 Last Admin: 06/20/20 15:35 Dose: 10 ml Documented by: Admin: 06/20/20 13:07 Dose: 10 ml Documented by: SHONDA Labs: Laboratory Tests 06/20/20 06/20/20 06/20/20 Range/Units 13:00 13:00 14:52 WBC 16.02 H (3.98-10.04) K/mm3 RBC 4.91 (3.98-5.22) M/mm3 Hgb 14.0 (11.2-15.7) gm/dl Hct 43.3 (34.1-44.9) % MCV 88.2 D (79.4-94.8) fl MCH 28.5 (25.6-32.2) pg MCHC 32.3 (32.2-35.5) g/dl RDW Std Deviation 44.8 (36.4-46.3) fL Plt Count 337 (182-369) K/mm3 MPV 10.3 (9.4-12.3) fl Neut % (Auto) 69.6 (34.0-71.1) % Lymph % (Auto) 22.8 (19.3-51.7) % Lea % (Auto) 5.8 (4.7-12.5) % Eos % (Auto) 1.1 (0.7-5.8) Baso % (Auto) 0.3 (0.1-1.2) % Neut # (Auto) 11.16 H (1.56-6.13) K/mm3 Lymph # (Auto) 3.65 (1.18-3.74) K/mm3 Lea # (Auto) 0.93 H (0.24-0.36) K/mm3 Eos # (Auto) 0.17 (0.04-0.36) K/mm3 Baso # (Auto) 0.05 (0.01-0.08) K/mm3 Manual Slide Review Not Reportable Sodium 138 (136-145) mEq/L Potassium 4.1 (3.5-5.1) mEq/L Chloride 102 (98-107) mEq/L Carbon Dioxide 25 (21-32) mEq/L Anion Gap 15.1 H (5-15) BUN 18 (7-18) mg/dL Creatinine 1.0 (0.55-1.02) mg/dL Est Cr Clr Drug Dosing 63.72 mL/min Estimated GFR (MDRD) > 60 (>60) mL/min BUN/Creatinine Ratio 18.0 (14-18) Glucose 113 H (74-106) mg/dL Calcium 9.5 (8.5-10.1) mg/dL Total Bilirubin 0.4 (0.2-1.0) mg/dL GGT 54 (5-55) U/L AST 15 (15-37) U/L ALT 28 (14-59) U/L Alkaline Phosphatase 66 (46-116) U/L C-Reactive Protein 0.9 (<1.0) mg/dL Total Protein 8.4 H (6.4-8.2) g/dl Albumin 4.3 (3.4-5.0) g/dl Globulin 4.1 gm/dL Albumin/Globulin Ratio 1.1 (1-2) Lipase 100 (73-393) U/L SARS-CoV-2 RNA (BANDAR) (NEGATIVE) SARS CoV-2 RNA Rapid BANDAR Negative (NEGATIVE) 06/20/20 Range/Units 14:52 WBC (3.98-10.04) K/mm3 RBC (3.98-5.22) M/mm3 Hgb (11.2-15.7) gm/dl Hct (34.1-44.9) % MCV (79.4-94.8) fl MCH (25.6-32.2) pg MCHC (32.2-35.5) g/dl RDW Std Deviation (36.4-46.3) fL Plt Count (182-369) K/mm3 MPV (9.4-12.3) fl Neut % (Auto) (34.0-71.1) % Lymph % (Auto) (19.3-51.7) % Lea % (Auto) (4.7-12.5) % Eos % (Auto) (0.7-5.8) Baso % (Auto) (0.1-1.2) % Neut # (Auto) (1.56-6.13) K/mm3 Lymph # (Auto) (1.18-3.74) K/mm3 Lea # (Auto) (0.24-0.36) K/mm3 Eos # (Auto) (0.04-0.36) K/mm3 Baso # (Auto) (0.01-0.08) K/mm3 Manual Slide Review Sodium (136-145) mEq/L Potassium (3.5-5.1) mEq/L Chloride (98-107) mEq/L Carbon Dioxide (21-32) mEq/L Anion Gap (5-15) BUN (7-18) mg/dL Creatinine (0.55-1.02) mg/dL Est Cr Clr Drug Dosing mL/min Estimated GFR (MDRD) (>60) mL/min BUN/Creatinine Ratio (14-18) Glucose (74-106) mg/dL Calcium (8.5-10.1) mg/dL Total Bilirubin (0.2-1.0) mg/dL GGT (5-55) U/L AST (15-37) U/L ALT (14-59) U/L Alkaline Phosphatase (46-116) U/L C-Reactive Protein (<1.0) mg/dL Total Protein (6.4-8.2) g/dl Albumin (3.4-5.0) g/dl Globulin gm/dL Albumin/Globulin Ratio (1-2) Lipase (73-393) U/L SARS-CoV-2 RNA (BANDAR) Negative (NEGATIVE) SARS CoV-2 RNA Rapid BANDAR (NEGATIVE) Meds: Medications Generic Name Dose Route Start Last Admin Trade Name Freq PRN Reason Stop Dose Admin Fentanyl 50 mcg 06/20/20 17:06 06/20/20 18:12 Sublimaze IVPUSH 06/20/20 23:00 50 mcg Q5M PRN Administration Pain Hydromorphone HCl 0.5 mg 06/20/20 17:06 Dilaudid IVPUSH 06/20/20 23:00 Q10M PRN Pain (severe 7-10) Lactated Ringer's 1,000 mls @ 125 mls/hr 06/20/20 15:30 06/20/20 15:35 Ringers, Lactated IV 06/20/20 23:00 125 mls/hr ASDIRECTED MUMTAZ Administration Ondansetron HCl 4 mg 06/20/20 17:06 06/20/20 18:26 Zofran IVPUSH 06/20/20 23:00 4 mg ONETIME PRN Administration Nausea/Vomiting Sodium Chloride 10 ml 06/20/20 12:31 06/20/20 15:35 Saline Flush FLUSH 06/20/20 23:00 10 ml ASDIRECTED PRN Administration Keep Vein Open Discontinued Medications Generic Name Dose Route Start Last Admin Trade Name Freq PRN Reason Stop Dose Admin Albuterol Confirm 06/20/20 15:51 Proventil Hfa Administered 06/20/20 15:52 Dose 6.7 gm INH .STK-MED ONE Bupivacaine HCl/Epinephrine Bitart Confirm 06/20/20 15:42 06/20/20 16:48 Marcaine 0.5%/Epinephrine 1:200,000 Administered 06/20/20 15:43 30 ml Dose Administration 50 ml .ROUTE .STK-MED ONE Dexamethasone Confirm 06/20/20 15:46 Dexamethasone Administered 06/20/20 15:47 Dose 20 mg .ROUTE .STK-MED ONE Fentanyl Confirm 06/20/20 15:46 Sublimaze Administered 06/20/20 15:47 Dose 250 mcg .ROUTE .STK-MED ONE Glycopyrrolate Confirm 06/20/20 17:27 Robinul Administered 06/20/20 17:28 Dose 0.8 mg .ROUTE .STK-MED ONE Lidocaine HCl Confirm 06/20/20 15:45 Xylocaine-Mpf 1% Administered 06/20/20 15:46 Dose 4 mls @ as directed .ROUTE .STK-MED ONE Lactated Ringer's Confirm 06/20/20 15:45 Ringers, Lactated Administered 06/20/20 15:46 Dose 1,000 mls @ as directed .ROUTE .STK-MED ONE Lidocaine HCl Confirm 06/20/20 15:46 Xylocaine-Mpf 1% Administered 06/20/20 15:47 Dose 4 mls @ as directed .ROUTE .STK-MED ONE Ketamine HCl Confirm 06/20/20 16:33 Ketalar Administered 06/20/20 16:34 Dose 500 mg .ROUTE .STK-MED ONE Ketorolac Tromethamine Confirm 06/20/20 15:46 Toradol Administered 06/20/20 15:47 Dose 30 mg .ROUTE .STK-MED ONE Lidocaine/Epinephrine Confirm 06/20/20 15:42 06/20/20 16:48 Xylocaine 1% With Epinephrine 1:100,000 Administered 06/20/20 15:43 30 ml Dose Administration 40 ml .ROUTE .STK-MED ONE Midazolam HCl Confirm 06/20/20 15:46 Versed 1 Mg/Ml Administered 06/20/20 15:47 Dose 2 mg .ROUTE .STK-MED ONE Neostigmine Methylsulfate Confirm 06/20/20 17:27 Neostigmine Methylsulfate Administered 06/20/20 17:28 Dose 5 mg .ROUTE .STK-MED ONE Ondansetron HCl 4 mg 06/20/20 12:31 06/20/20 13:05 Zofran IVPUSH 06/20/20 12:32 4 mg ONETIME ONE Administration Ondansetron HCl Confirm 06/20/20 15:45 Zofran Administered 06/20/20 15:46 Dose 4 mg .ROUTE .STK-MED ONE Propofol Confirm 06/20/20 15:45 Diprivan 20 Ml Administered 06/20/20 15:46 Dose 400 mg .ROUTE .STK-MED ONE Propofol Confirm 06/20/20 16:33 Diprivan 20 Ml Administered 06/20/20 16:34 Dose 200 mg .ROUTE .STK-MED ONE Rocuronium [place] Confirm 06/20/20 15:45 Zemuron Administered 06/20/20 15:46 Dose 50 mg .ROUTE .STK-MED ONE - Re-Assessments/Exams Free Text/Narrative Re-Assessment/Exam: 06/20/20 14:06 WBC 16,000, other labs all relatively good. Getting abd US at this time. 06/20/20 14:48. GB has many stones, up to 1.[address] Cárdenas will come see pt, plan to take to OR this afternoon. Departure - Departure Time of Disposition: 15:15 Disposition: DC/Tfer to [facility] Condition: Fair Clinical Impression: Cholelithiasis Qualifiers: Cholelithiasis location: gallbladder Cholecystitis presence: with cholecystitis Cholecystitis acuity: acute Biliary obstruction: without biliary obstruction Qualified Code(s): K80.00 - Calculus of gallbladder with acute cholecystitis without obstruction - Discharge Information Sepsis Event Note (ED) - Evaluation Sepsis Screening Result: No Definite Risk - Focused Exam Vital Signs: Vital Signs Temp Pulse Resp BP Pulse Ox 06/20/20 18:15 97.3 F 98 12 110/50 L 99 06/20/20 18:03 17 100 06/20/20 18:00 97.5 F 103 H 15 114/51 L 98 06/20/20 17:53 97.4 F 102 H 17 107/49 L 100 06/20/20 12:10 97.2 F 72 16 134/92 H 97 ED Communication - Discussed Case With (1) Discussed Case With (1): Admitting Provider (Dr Cárdenas, decision to take to surgery at about 15:00) - My Orders Last 24 Hours: My Active Orders 06/20/20 12:31 Sodium Chloride 0.9% [Saline Flush] 10 ml FLUSH ASDIRECTED PRN Peripheral IV Insertion Adult [OM.PC] Stat 06/20/20 12:32 Peripheral IV Care [RC] . DIRECTED 06/20/20 15:28 Schedule Procedure [COMM] Stat 06/20/20 15:29 Patient Status [ADT] Routine - Assessment/Plan Last 24 Hours: My Active Orders 06/20/20 12:31 Sodium Chloride 0.9% [Saline Flush] 10 ml FLUSH ASDIRECTED PRN Peripheral IV Insertion Adult [OM.PC] Stat 06/20/20 12:32 Peripheral IV Care [RC] . DIRECTED 06/20/20 15:28 Schedule Procedure [COMM] Stat 06/20/20 15:29 Patient Status [ADT] Routine
--- NOTE | 2020-06-20 14:49 | US ---
PROCEDURE INFORMATION: Exam: US Abdomen, Limited; Right Upper Quadrant Exam date and time: 06/20/2020 1:49 PM Age: 35 years old Clinical indication: Abdominal pain; Generalized TECHNIQUE: Imaging protocol: US abdomen. Real time ultrasound with image documentation. Limited exam focused on the right upper quadrant. COMPARISON: No relevant prior studies available. FINDINGS: Liver: Diffuse fatty infiltration of the liver. Gallbladder: Cholelithiasis. Largest gallstone measures approximately 15 mm in greatest dimension. Normal gallbladder wall thickness measuring 1.7 mm. Common bile duct: Normal common bile duct measuring 4.5 mm in diameter. Pancreas: Visualized pancreas is unremarkable. Right kidney: Normal. No mass. No hydronephrosis. IMPRESSION: 1. Bulky cholelithiasis. 2. Diffuse fatty infiltration of the liver. Thank you for allowing us to participate in the care of your patient. Dictated and Authenticated by: Mohini Loo MD 06/20/2020 3:23 PM Central Time ([place] & [place]) NIKHIL
--- NOTE | 2020-06-20 17:11 | PCM.PREANE ---
Preanesthetic Assessment - Procedure Proposed Procedure: Laparoscopic Cholecystectomy - Anesthesia/Transfusion/Family Hx Anesthesia History: Prior Anesthesia Without Reaction Family History of Anesthesia Reaction: No Transfusion History: No Prior Transfusion(s) - Review of Systems General: No Symptoms Pulmonary: No Symptoms (History of asthma, recently started Advair. Rescue inhaler if needed. ) Cardiovascular: No Symptoms Gastrointestinal: Abdominal Pain, Nausea, Other (GERD, with gallbladder flare ups. Laparoscopic Sourav fundoplication. ) Neurological: Headache (Migraines managed with propanolol), Other (Fibromyalgia, Rheumatoid arthritis) Other: Reports: None (Obesity BMI 38), Depression, Anxiety - Physical Assessment NPO Status Date: 06/20/20 NPO Status Time: 06:00 Vital Signs: Last Vital Signs Temp 36.2 C 06/20/20 12:10 Pulse 72 06/20/20 12:10 Resp 16 06/20/20 12:10 BP 134/92 H 06/20/20 12:10 Pulse Ox 97 06/20/20 12:10 Height: 1.6 m Weight: 97.522 kg ASA Class: 2E Mental Status: Alert & Oriented x3 Airway Class: Mallampati = 2 Dentition: Reports: Normal Dentition Thyro-Mental Finger Breadths: 3 Mouth Opening Finger Breadths: 2 ROM/Head Extension: Full Lungs: Clear to Auscultation, Normal Respiratory Effort Cardiovascular: Regular Rate, Regular Rhythm - Lab Values: Laboratory Last Values WBC 16.02 K/mm3 (3.98-10.04) H 06/20/20 13:00 RBC 4.91 M/mm3 (3.98-5.22) 06/20/20 13:00 Hgb 14.0 gm/dl (11.2-15.7) 06/20/20 13:00 Hct 43.3 % (34.1-44.9) 06/20/20 13:00 MCV 88.2 fl (79.4-94.8) D 06/20/20 13:00 MCH 28.5 pg (25.6-32.2) 06/20/20 13:00 MCHC 32.3 g/dl (32.2-35.5) 06/20/20 13:00 RDW Std Deviation 44.8 fL (36.4-46.3) 06/20/20 13:00 Plt Count 337 K/mm3 (182-369) 06/20/20 13:00 MPV 10.3 fl (9.4-12.3) 06/20/20 13:00 Neut % (Auto) 69.6 % (34.0-71.1) 06/20/20 13:00 Lymph % (Auto) 22.8 % (19.3-51.7) 06/20/20 13:00 Warrick % (Auto) 5.8 % (4.7-12.5) 06/20/20 13:00 Eos % (Auto) 1.1 (0.7-5.8) 06/20/20 13:00 Baso % (Auto) 0.3 % (0.1-1.2) 06/20/20 13:00 Neut # (Auto) 11.16 K/mm3 (1.56-6.13) H 06/20/20 13:00 Lymph # (Auto) 3.65 K/mm3 (1.18-3.74) 06/20/20 13:00 Warrick # (Auto) 0.93 K/mm3 (0.24-0.36) H 06/20/20 13:00 Eos # (Auto) 0.17 K/mm3 (0.04-0.36) 06/20/20 13:00 Baso # (Auto) 0.05 K/mm3 (0.01-0.08) 06/20/20 13:00 Manual Slide Review Not Reportable 06/20/20 13:00 Sodium 138 mEq/L (136-145) 06/20/20 13:00 Potassium 4.1 mEq/L (3.5-5.1) 06/20/20 13:00 Chloride 102 mEq/L (98-107) 06/20/20 13:00 Carbon Dioxide 25 mEq/L (21-32) 06/20/20 13:00 Anion Gap 15.1 (5-15) H 06/20/20 13:00 BUN 18 mg/dL (7-18) 06/20/20 13:00 Creatinine 1.0 mg/dL (0.55-1.02) 06/20/20 13:00 Est Cr Clr Drug Dosing 63.72 mL/min 06/20/20 13:00 Estimated GFR (MDRD) > 60 mL/min (>60) 06/20/20 13:00 BUN/Creatinine Ratio 18.0 (14-18) 06/20/20 13:00 Glucose 113 mg/dL (74-106) H 06/20/20 13:00 Calcium 9.5 mg/dL (8.5-10.1) 06/20/20 13:00 Total Bilirubin 0.4 mg/dL (0.2-1.0) 06/20/20 13:00 GGT 54 U/L (5-55) 06/20/20 13:00 AST 15 U/L (15-37) 06/20/20 13:00 ALT 28 U/L (14-59) 06/20/20 13:00 Alkaline Phosphatase 66 U/L (46-116) 06/20/20 13:00 C-Reactive Protein 0.9 mg/dL (<1.0) 06/20/20 13:00 Total Protein 8.4 g/dl (6.4-8.2) H 06/20/20 13:00 Albumin 4.3 g/dl (3.4-5.0) 06/20/20 13:00 Globulin 4.1 gm/dL 06/20/20 13:00 Albumin/Globulin Ratio 1.1 (1-2) 06/20/20 13:00 Lipase 100 U/L (73-393) 06/20/20 13:00 SARS-CoV-2 RNA (BANDAR) Negative (NEGATIVE) 06/20/20 14:52 SARS CoV-2 RNA Rapid BANDAR Negative (NEGATIVE) 06/20/20 14:52 - Allergies Allergies/Adverse Reactions: Allergies Allergy/AdvReac Type Severity Reaction Status Date / Time amitriptyline Allergy Hives Verified 06/20/20 13:58 hydroxychloroquine Allergy Hives Verified 06/20/20 13:58 Sulfa (Sulfonamide Allergy Hives Verified 06/20/20 13:58 Antibiotics) - Anesthesia Plan Pre-Op Medication Ordered: Anxiolytic, Other (Albuterol Inhaler x 2 puffs ) - Acknowledgements Anesthesia Type Planned: General Anesthesia Pt an Appropriate Candidate for the Planned Anesthesia: Yes Alternatives and Risks of Anesthesia Discussed w Pt/Guardian: Yes Pt/Guardian Understands and Agrees with Anesthesia Plan: Yes PreAnesthesia Questionnaire HEENT History: Reports: Impaired Vision Other HEENT History: wears contacts/glasses Cardiovascular History: Reports: Hypertension Respiratory History: Reports: Asthma Gastrointestinal History: Reports: Hiatal Hernia Genitourinary History: Reports: UTI, Recurrent [employer] History: Reports: Musculoskeletal History: Reports: RA, Other (See Below) Other Musculoskeletal History: psoriatic arthritis Neurological History: Reports: Migraines Psychiatric History: Reports: Anxiety, Depression Endocrine/Metabolic History: Reports: None Hematologic History: Reports: Anemia Immunologic History: Reports: None Oncologic (Cancer) History: Reports: None Dermatologic History: Reports: Psoriasis - Infectious Disease History Infectious Disease History: Reports: Chicken Pox - Past Surgical History Head Surgeries/Procedures: Reports: None HEENT Surgical History: Reports: Adenoidectomy, Tonsillectomy Cardiovascular Surgical History: Reports: None Respiratory Surgical History: Reports: None GI Surgical History: Reports: EGD, Hernia Repair/Other, Sourav Fundoplication Female Surgical History: Reports: D&C, Dilitation & Evacuation Endocrine Surgical History: Reports: None Neurological Surgical History: Reports: None Musculoskeletal Surgical History: Reports: Carpal Tunnel Oncologic Surgical History: Reports: None Dermatological Surgical History: Reports: None - SUBSTANCE USE Tobacco Use Status *Q: Never Tobacco User - HOME MEDS Home Medications: Home Meds DULoxetine [Cymbalta] 30 mg PO BID 11/26/18 [History] Gabapentin [Neurontin] 300 mg PO QAM 11/26/18 [History] Gabapentin [Neurontin] 600 mg PO BEDTIME 11/26/18 [History] Montelukast [Singulair] 10 mg PO DAILY 11/26/18 [History] Adalimumab [Humira(Cf) Pen] 40 mg SQ Q14D 07/28/19 [History] Meloxicam 7.5 mg PO DAILY 07/28/19 [History] Naltrexone 4.5 4.5 mg PO DAILY 07/28/19 [History] Diclofenac Submicronized [Diclofenac] 06/20/20 [History] Fluticasone/Salmeterol [Advair 100-50] 06/20/20 [History] Montelukast [Singulair] 10 mg PO DAILY 06/20/20 [History] buPROPion [Wellbutrin] 75 mg PO BEDTIME 06/20/20 [History] - CURRENT (IN HOUSE) MEDS Current Meds: Current Medications Lactated Ringer's (Ringers, Lactated) 1,000 mls @ 125 mls/hr IV ASDIRECTED MUMTAZ Stop: 06/20/20 23:00 Last Admin: 06/20/20 15:35 Dose: 125 mls/hr Documented by: Sodium Chloride (Saline Flush) 10 ml FLUSH ASDIRECTED PRN PRN Reason: Keep Vein Open Stop: 06/20/20 23:00 Last Admin: 06/20/20 15:35 Dose: 10 ml Documented by: Discontinued Medications Albuterol (Proventil Hfa) Confirm Administered Dose 6.7 gm INH .STK-MED ONE Stop: 06/20/20 15:52 Bupivacaine HCl/Epinephrine Bitart (Marcaine 0.5%/Epinephrine 1:200,000) Confirm Administered Dose 50 ml .ROUTE .STK-MED ONE Stop: 06/20/20 15:43 Last Admin: 06/20/20 16:48 Dose: 30 ml Documented by: Dexamethasone (Dexamethasone) Confirm Administered Dose 20 mg .ROUTE .STK-MED ONE Stop: 06/20/20 15:47 Fentanyl (Sublimaze) Confirm Administered Dose 250 mcg .ROUTE .STK-MED ONE Stop: 06/20/20 15:47 Lidocaine HCl (Xylocaine-Mpf 1%) Confirm Administered Dose 4 mls @ as directed .ROUTE .STK-MED ONE Stop: 06/20/20 15:46 Lactated Ringer's (Ringers, Lactated) Confirm Administered Dose 1,000 mls @ as directed .ROUTE .STK-MED ONE Stop: 06/20/20 15:46 Lidocaine HCl (Xylocaine-Mpf 1%) Confirm Administered Dose 4 mls @ as directed .ROUTE .STK-MED ONE Stop: 06/20/20 15:47 Ketamine HCl (Ketalar) Confirm Administered Dose 500 mg .ROUTE .STK-MED ONE Stop: 06/20/20 16:34 Ketorolac Tromethamine (Toradol) Confirm Administered Dose 30 mg .ROUTE .STK-MED ONE Stop: 06/20/20 15:47 Lidocaine/Epinephrine (Xylocaine 1% With Epinephrine 1:100,000) Confirm Administered Dose 40 ml .ROUTE .STK-MED ONE Stop: 06/20/20 15:43 Last Admin: 06/20/20 16:48 Dose: 30 ml Documented by: Midazolam HCl (Versed 1 Mg/Ml) Confirm Administered Dose 2 mg .ROUTE .STK-MED ONE Stop: 06/20/20 15:47 Ondansetron HCl (Zofran) 4 mg IVPUSH ONETIME ONE Stop: 06/20/20 12:32 Last Admin: 06/20/20 13:05 Dose: 4 mg Documented by: Ondansetron HCl (Zofran) Confirm Administered Dose 4 mg .ROUTE .STK-MED ONE Stop: 06/20/20 15:46 Propofol (Diprivan 20 Ml) Confirm Administered Dose 400 mg .ROUTE .STK-MED ONE Stop: 06/20/20 15:46 Propofol (Diprivan 20 Ml) Confirm Administered Dose 200 mg .ROUTE .STK-MED ONE Stop: 06/20/20 16:34 Rocuronium Engadine (Zemuron) Confirm Administered Dose 50 mg .ROUTE .STK-MED ONE Stop: 06/20/20 15:46
--- NOTE | 2020-06-20 17:44 | PCM.PRNOTE ---
- Free Text/Narrative Note: OPERATIVE REPORT Date of Surgery/Procedure: June 20, 2020 Operative Procedure(s): laparoscopic cholecystectomy Findings: gallbladder with scarring around ductal structures Pre Op Diagnosis: Acute cholecystitis Post-Op Diagnosis: Same Anesthesia Technique: General ET Tube Primary Surgeon: Noemy Rosario MD Anesthesia Provider: Reny Love CRNA Pathology: Gallbladder with stones Fluid Replacement, Intraop: 1500cc Output, Urine Amount: 0cc EBL: 10cc Drain/Tube Comments: none Indication for the procedure: The patient is a 35-year-old lady who presented to my office with acute right upper quadrant pain. She was seen and evaluated in the ED and had findings of acute cholecystitis. The patient was counseled for laparoscopic cholecystectomy, with possible conversion to open. After discussion of the risks of infection, bleeding and injury to the bile duct as well as increased complication from previous intra-abdominal surgery, the patient's consent was obtained. Description of the procedure: The patient presented to the outpatient holding area on the day of the procedure. The history and physical were verified and consent was present and on the chart. The patient was taken back to the operating room and placed in supine position on the operating table. SCD boots were placed and functional prior to the start of the procedure. Preoperative antibiotics were administered according to SCIP protocol, Ancef [] g IV. A surgical timeout was performed. The patient then had induction of general anesthesia and was intubated without difficulty. The patient was prepped and draped in standard surgical fashion. We began by making an infraumbilical vertical incision and deepened this down through subcutaneous fat to the level of the fascia. This was grasped and incised. We bluntly entered through the peritoneum and a finger sweep was done. A stay suture of 0 Vicryl was placed in the fascia. The 12 mm balloon Barrios port was then inserted into the abdomen and the balloon inflated. Insufflation was attached and we had appropriate opening pressures. The abdomen was then i nsufflated to 15 mmHg. We inserted a scope into the abdomen and inspected the area where we had entered. There was no evidence of injury to surrounding structures with no evidence of bile or bleeding. A TAP block was then performed using 1% lidocaine with epinephrine mixed with 0.5% bupivacaine with epinephrine. The patient was then positioned with head up and right side up to facilitate exposure of the gallbladder. We then proceeded with placing our additional ports. A 5mm port was placed in the epigastric region. Two additional 5mm ports placed under direct visualization in the right upper quadrant. Once we had sufficiently exposed the dome of the gallbladder. This was grasped and retracted cephalad. We proceeded with our dissection to expose the cystic duct and cystic artery. We did have a critical view. The cystic duct and artery were then clipped and cut using endoscopic scissors. We then proceeded to fully dissect the gallbladder off of the cystic plate using the Bovie device. The gallbladder was then placed in the Endo Catch bag and withdrawn towards the umbilical port. We then inspected the area of the dissection. There was no significant bleeding and hemostasis was achieved. We then inspected the port sites and desufflated the abdomen. The ports were then removed. The gallbladder was withdrawn through the umbilical port site. We then proceeded to close the umbilical port site using an 0 Vicryl stitch. We had good closure of the fascia. A superficial 4-0 monocryl suture was used to approximate the skin. The skin was covered with Dermabond surgical glue. The patient tolerated the procedure well and was extubated without difficulty. He was transported to the PACU in stable condition. All sponge, needle counts correct. I was scrubbed and actively participated in the entire procedure. No immediate complications noted. Complications: None apparent Condition: Good Noemy Rosario MD General Surgery
--- NOTE | 2020-06-20 17:47 | PCM.OPNOTE ---
- General Post-Op/Procedure Note Date of Surgery/Procedure: 06/20/20 Operative Procedure(s): laparoscopic cholecystectomy Findings: gallbladder with normal anatomy and scarring around base Pre Op Diagnosis: acute cholecystitis Post-Op Diagnosis: same Anesthesia Technique: General ET Tube Primary Surgeon: Noemy Rosario Anesthesia Provider: Reny Love Pathology: gallbladder with contents Fluid Replacement, Intraop: 1,500 Output, Urine Amount: 0 EBL in mLs: 10 Complications: none apparent Condition: Stable
--- NOTE | 2020-06-20 17:58 | PCM.POSTAN ---
POST ANESTHESIA ASSESSMENT - MENTAL STATUS Mental Status: Other (drowsy) - VITAL SIGNS Vital Signs: Last Vital Signs Temp 36.2 C 06/20/20 12:10 Pulse 72 06/20/20 12:10 Resp 16 06/20/20 12:10 BP 134/92 H 06/20/20 12:10 Pulse Ox 97 06/20/20 12:10 1753 107/49 102 18 100% 97.4F - RESPIRATORY Respiratory Status: Respiratory Rate WNL, Airway Patent, O2 Saturation Stable, Supplemental Oxygen - CARDIOVASCULAR CV Status: Pulse Rate WNL, Blood Pressure Stable - GASTROINTESTINAL GI Status: No Symptoms - PAIN Pain Score: 0 - POST OP HYDRATION Hydration Status: Adequate & Stable
[2020-06-20] MEDS: fentaNYL 100 MCG/2 ML SDV IVPUSH PRN ×2 (18:12→18:36)
--- NOTE | 2020-06-20 19:04 | PCM48HPAN ---
Post Anesthesia Note - EVALUATION WITHIN 48HRS OF ANESTHETIC Vital Signs in Normal Range: Yes Patient Participated in Evaluation: Yes Respiratory Function Stable: Yes Airway Patent: Yes Cardiovascular Function Stable: Yes Hydration Status Stable: Yes Pain Control Satisfactory: Yes Nausea and Vomiting Control Satisfactory: Yes Mental Status Recovered: Yes Vital Signs: Last Vital Signs Temp 36.6 C 06/20/20 18:50 Pulse 96 06/20/20 18:50 Resp 15 06/20/20 18:50 BP 108/52 L 06/20/20 18:50 Pulse Ox 94 L 06/20/20 18:50
[2020-06-20 19:05] VITALS: BP 103/63; PULSE 98
== END | disposition home or self-care (01) ==
LOC: SUPCPDRO 11:28 → JD.ED 11:28 → JD.SDS 15:35
PROVIDERS: ATTEND Surgery
DX: K80.00 Calculus of gallbladder with acute cholecystitis without obstruction (principal); J45.909 Unspecified asthma, uncomplicated; I10 Essential (primary) hypertension; F41.9 Anxiety disorder, unspecified; F32.9 Major depressive disorder, single episode, unspecified; Z98.890 Other specified postprocedural states; Z79.899 Other long term (current) drug therapy; Z88.2 Allergy status to sulfonamides; Z88.8 Allergy status to other drugs, medicaments and biological substances; Z87.891 Personal history of nicotine dependence; Z01.812 Encounter for preprocedural laboratory examination; Z20.828 Contact with and (suspected) exposure to other viral communicable diseases
CPT/HCPCS: 36415; 47562; 76705; 80053; 82977; 83690; 85025; 86140; 87635; 96374; 99285; A9270; J0330; J1100; J1885; J2001; J2250; J2405; J2704; J2710; J3010; J3490; J7120; 00790; 99284; U0002

== ENCOUNTER 2024-03-05 07:54 | Day surgery (SDC) | payer BC ==
[~2024-03-05 07:54] MED LIST changes: -Acetaminophen/HYDROcodone 325-5 MG Tab PO ONE; -Albuterol 6.7 GM Inhaler INH ONE; -Bupivacaine 0.5%/EPINEPHrine 1:200,000 50 ML MDV ONE; -Dexamethasone 4 MG/ML 5 ML MDV ONE; -HYDROmorphone 0.5 MG/0.5 ML Syringe IVPUSH PRN; -Ketamine 500 mg/10 ML MDV ONE; -Ketorolac 30 MG/ML SDV ONE; -Lactated Ringers 1,000 ML IV SCH; -Lactated Ringers 1,000 ML ONE; -Lidocaine 1% 4 ML ONE; +Lidocaine 1% 5 ML VIAL ONE; -Lidocaine 1% with EPINEPHrine 1:100,000 20 ML MDV ONE; -Ondansetron 4 MG/2 ML SDV IVPUSH ONE; -Ondansetron 4 MG/2 ML SDV IVPUSH PRN; -Rocuronium 50 MG/5 ML Vial ONE; -Succinylcholine/Sod PF 100 MG/5 ML SYRINGE IV ONE
[2024-03-05] MEDS: Lactated Ringers 1,000 ML IV SCH (08:20)
[2024-03-05] MEDS ORDERED: ceFAZolin 2 GM Vial ONE (08:29)
[2024-03-05] MEDS ORDERED: Dexamethasone 4 MG/ML 5 ML MDV ONE (08:30)
[2024-03-05] MEDS ORDERED: HYDROmorphone 0.5 MG/0.5 ML Syringe IVPUSH PRN (08:37)
[2024-03-05] MEDS ORDERED: Ondansetron 4 MG/2 ML SDV IVPUSH PRN (08:37)
[2024-03-05] MEDS ORDERED: ePHEDrine 50 MG/ML SDV ONE (09:16)
[2024-03-05] MEDS: EPINEPHrine 1 MG/ML SDV ONE (09:23)
[2024-03-05] MEDS: Bupivacaine 0.25% 10 ML SDV ONE (09:23)
[2024-03-05] MEDS ORDERED: Lactated Ringers 1,000 ML ONE (09:30)
[2024-03-05] MEDS: fentaNYL 100 MCG/2 ML SDV IVPUSH PRN (10:16)
[2024-03-05] MEDS ORDERED: Ketorolac 30 MG/ML SDV ONE (10:51)
[2024-03-05] MEDS: traMADol 50 MG Tab PO PRN (11:18)
[2024-03-05 12:42] VITALS: BP 142/75; PULSE 81
== END 2024-03-05 11:55 | disposition home or self-care (01) ==
LOC: JD.SDS 07:54
PROVIDERS: ATTEND Orthopaedic Surgery
DX: S83.242A Other tear of medial meniscus, current injury, left knee, initial encounter (principal); M22.42 Chondromalacia patellae, left knee; M65.862 Other synovitis and tenosynovitis, left lower leg; J45.30 Mild persistent asthma, uncomplicated; I10 Essential (primary) hypertension; Z79.899 Other long term (current) drug therapy; Z88.2 Allergy status to sulfonamides; Z88.8 Allergy status to other drugs, medicaments and biological substances; Z87.891 Personal history of nicotine dependence; Z79.82 Long term (current) use of aspirin
CPT/HCPCS: 29881; A9270; J0171; J0665; J0690; J1100; J1885; J2250; J2405; J2704; J3010; J7120; 01400; J3490